=== PATIENT | female | born 1955 | race African-American/Black ===

== ENCOUNTER 2017-09-02 13:07 | Observation (INO) | payer OTHER ==
[~2017-09-02] VITALS: Ht 182.9 cm; Wt 127.9 kg
[~2017-09-02 13:07] MED LIST: ASPIR-LOW81 MG PO; Amoxicillin PO; BUDEPRION SR100 MG PO; BUPROPION HCL150 M2 PO; Biaxin PO; CARDIZEM60 MG PO; CYCLOBENZAPRINE10 MG PO; CYTOTEC200 MCG PO; FAMOTIDINE40 MG PO; FLEXERIL10 MG PO; GLUCOPHAGE500 MG PO; GLUCOTROL5 MG PO; HYDROCODON-ACE1 EAC5 PO; IBUPROFEN800 MG PO; LITE COAT ASPI325 M1 PO; LOPRESSOR25 MG PO; LOPRESSOR50 MG PO; LORTAB PO; METFORMIN HCL500 MG PO; NITROSTAT0.4 MG SL; NORCO 10/3251 TABLET PO; NORVASC10 MG PO; PRILOSEC40 MG PO; PriLOSEC PO; XANAX0.5 MG PO; XARELTO20 MG PO; ZANTAC150 MG PO; ZYBAN 150 MG T150 MG PO
[2017-09-02 13:44] LABS: BASOPHIL (%) 0.5 % (0-1); BASOPHIL COUNT 0.1 K/uL (0-0.1); EOSINOPHIL (%) 0.3 % (0-5); HEMATOCRIT 38.3 % (36.0-46.0); HEMOGLOBIN 12.6 G/DL (11.9-15.5); IMMATURE GRANULOCYTE (%) 0.9 % (0.0-0.7); LYMPHOCYTE (%) 12.9 % (15-42); LYMPHOCYTE COUNT 1.7 K/uL (1.0-2.8); MCH 27.1 PG (29.0-34.0); MCHC 32.9 G/DL (30.0-36.0); MCV 82.4 FL (83-99); MONOCYTE (%) 7.2 % (3-12); MONOCYTE COUNT 0.9 K/uL (0-0.8); NEUTROPHIL (%) 78.2 % (45-76); PLATELET COUNT 377 K/uL (156-360); RBC DIS.WIDTH-CV 13.7 % (11.8-14.6); RBC DIS.WIDTH-SD 41.2 % (39-53); RED BLOOD COUNT 4.65 M/uL (3.80-5.20); WHITE BLOOD COUNT 12.8 K/uL (4.1-10.2)
[2017-09-02 13:53] LABS: ALBUMIN 3.5 g/dL (3.2-4.8); CHLORIDE 100 mEq/L (99-109); POTASSIUM 3.6 mEq/L (3.7-5.4); SODIUM 136 mEq/L (136-147)
[2017-09-02 13:54] LABS: MAGNESIUM 2.1 mg/dL (1.3-2.7)
[2017-09-02 13:56] LABS: GLUCOSE 107 mg/dL (70-99); TOTAL PROTEIN 7.4 g/dL (6.4-8.3)
[2017-09-02 13:58] LABS: TOTAL BILIRUBIN 0.9 mg/dL (0.0-1.0)
[2017-09-02 13:59] LABS: ALKALINE PHOSPHATASE 187 IU/L (3-129)
[2017-09-02 14:00] LABS: CREATININE 0.7 mg/dL (0.6-1.3); GFR ESTIMATE (CALCULATED) > 59 mL/min/
[2017-09-02 14:01] LABS: AST (GOT) 16 IU/L (2-34); UREA NITROGEN (BUN) 11 mg/dL (9-23)
[2017-09-02 14:02] LABS: ALT (GPT) 17 IU/L (3-49)
[2017-09-02 14:05] LABS: TROP-I INTERPRETATION NEGATIVE; TROPONIN-I < 0.01 ng/mL (0.0-0.30)
[2017-09-02 15:48] LABS: INTER. NORMALIZED RATIO 1.3
[2017-09-02 15:50] LABS: PTT 26.3 SEC (25-37)
[2017-09-02] MEDS ORDERED: OXYCODONE HCL10 MG PO (16:38)
[2017-09-02] MEDS ORDERED: FLUOXETINE HCL40 MG PO (16:38)
[2017-09-02] MEDS ORDERED: BUPROPION XL300 MG PO (16:39)
[2017-09-02] MEDS ORDERED: IBU800 MG PO (16:40)
[2017-09-02] MEDS ORDERED: AMLODIPINE BESY10 MG PO (16:40)
[2017-09-02 17:55] LABS: APPEARANCE SL.HAZY ((CLEAR)); BILIRUBIN NEGATIVE; BLOOD NEGATIVE; COLOR AMBER ((YELLOW)); GLUCOSE (STRIP) NEGATIVE; KETONES NEGATIVE; LEUKOCYTES NEGATIVE; NITRITE NEGATIVE; PROTEIN (STRIP) 100; SPECIFIC GRAVITY 1.027 (1.000-1.030)
[2017-09-02 18:08] LABS: BACTERIA RARE /HPF; EPITHELIAL CELLS 1+ /HPF; MUCUS 4+ /LPF; UCUL ADDED? NO; WHITE BLOOD CELLS 0-5 /HPF (0-5)
[2017-09-02 19:00] VITALS: BP 119/59
[2017-09-02 20:02] LABS: TROP-I INTERPRETATION NEGATIVE; TROPONIN-I 0.01 ng/mL (0.0-0.30)
[2017-09-03 00:09] VITALS: BP 119/57
[2017-09-03 01:26] LABS: TROP-I INTERPRETATION NEGATIVE; TROPONIN-I < 0.01 ng/mL (0.0-0.30)
[2017-09-03 04:17] VITALS: BP 122/60
[2017-09-03 05:26] LABS: BASOPHIL (%) 0.4 % (0-1); BASOPHIL COUNT 0.1 K/uL (0-0.1); EOSINOPHIL (%) 1.1 % (0-5); EOSINOPHIL COUNT 0.1 K/uL (0-0.3); HEMATOCRIT 36.6 % (36.0-46.0); HEMOGLOBIN 11.7 G/DL (11.9-15.5); IMMATURE GRANULOCYTE (%) 0.4 % (0.0-0.7); LYMPHOCYTE (%) 18.5 % (15-42); LYMPHOCYTE COUNT 2.1 K/uL (1.0-2.8); MCH 26.7 PG (29.0-34.0); MCV 83.4 FL (83-99); MONOCYTE (%) 7.1 % (3-12); MONOCYTE COUNT 0.8 K/uL (0-0.8); NEUTROPHIL (%) 72.5 % (45-76); NEUTROPHIL COUNT 8.1 K/uL (1.8-6.4); PLATELET COUNT 398 K/uL (156-360); RBC DIS.WIDTH-CV 13.9 % (11.8-14.6); RBC DIS.WIDTH-SD 42.3 % (39-53); RED BLOOD COUNT 4.39 M/uL (3.80-5.20); WHITE BLOOD COUNT 11.2 K/uL (4.1-10.2)
[2017-09-03 07:34] VITALS: BP 134/78
[2017-09-03 11:23] VITALS: BP 163/79
[2017-09-03] MEDS ORDERED: AZITHROMYCIN250 MG PO (14:01)
[2017-09-03] MEDS ORDERED: CEFDINIR300 MG PO (14:02)
[2017-09-03 15:04] VITALS: BP 160/82
[2017-09-03] MEDS ORDERED: PROAIR HFA8.5 GM IH (15:10)
== END 2017-09-03 15:59 | disposition home or self-care (01) ==
LOC: EME 13:07 → EDOF 15:13 → 4SOUTH 15:13 → EDOF 15:13 → ENRESERV 15:21 → EDOF 15:52 → ENRESERV 15:54 → EDOF 15:57 → ENRESERV 15:58 → 4SOUTH 17:07
PROVIDERS: Emergency Medicine; Nurse Practitioner Family
DX: J18.9 Pneumonia, unspecified organism (principal); R09.02 Hypoxemia; E66.01 Morbid (severe) obesity due to excess calories; Z68.41 Body mass index [BMI] 40.0-44.9, adult; I10 Essential (primary) hypertension; E11.9 Type 2 diabetes mellitus without complications; I48.0 Paroxysmal atrial fibrillation; F17.210 Nicotine dependence, cigarettes, uncomplicated; D72.829 Elevated white blood cell count, unspecified; F32.9 Major depressive disorder, single episode, unspecified; K21.9 Gastro-esophageal reflux disease without esophagitis; Z86.19 Personal history of other infectious and parasitic diseases; Z90.49 Acquired absence of other specified parts of digestive tract; Z90.710 Acquired absence of both cervix and uterus; Z82.49 Family history of ischemic heart disease and other diseases of the circulatory system; Z83.3 Family history of diabetes mellitus; Z88.5 Allergy status to narcotic agent; Z91.040 Latex allergy status; Z88.8 Allergy status to other drugs, medicaments and biological substances; Z79.82 Long term (current) use of aspirin; Z79.84 Long term (current) use of oral hypoglycemic drugs
CPT/HCPCS: 71046; 80053; 81003; 83605; 83735; 84484; 85025; 85610; 85730; 87040; 93005; 94640; 94640 76; 94799; 99202; 99281; 99285; G0378; J0456; J0696; J1650